=== PATIENT | male | born 1990 | race Caucasian/White ===

== ENCOUNTER → 2023-07-14 | Outpatient (REF) | payer OTHER | LOC: M LABSMT 10:09 | PROVIDERS: ATTEND Urology | DX: Z30.2 Encounter for sterilization (principal) ==

== ENCOUNTER → 2023-09-21 | Outpatient (REF) | payer OTHER ==
[2023-09-21 11:06] LABS: SEMEN APPEARANCE OPAQUE (OPAQUE); SEMEN VISCOSITY LIQUID (LIQUID); SEMEN VOLUME 4.5 ml (2.0-5.0); WBC CONCENTRATION <=1 M/ml (<=1 M/ml)
== END ==
LOC: M SMT 11:01
PROVIDERS: ATTEND Urology
DX: Z30.2 Encounter for sterilization (principal)